=== PATIENT | male | born 1995 | race Caucasian/White ===

== ENCOUNTER 2017-05-19 18:28 | Observation (INO) | payer OTHER ==
--- NOTE | 2017-05-19 19:36 | CPEKG ---
Heart Rate: 48 RR Interval: 1250 P-R Interval: 152 QRSD Interval: 88 QT Interval: 452 QTC Interval: 404 P [place]: 53 QRS [place]: 81 T Wave [place]: 60 EKG Severity - ABNORMAL ECG - EKG Impression: SINUS RHYTHM EKG Impression: SUPRAVENTRICULAR BIGEMINY Electronically Signed By: Shobha Rosenthal 19-May-2017 22:55:11
[2017-05-19 19:41] LABS: % IMMATURE GRANULYOCYTES 0.4 % (0.0-1.1); ABSOLUTE IMMATURE GRANULOCYTES 0.03 10^3/uL (0.00-0.10); ADD DIFF? NO; ADD MORPH? NO; ADD SCAN? NO; ATYPICAL LYMPHOCYTE FLAG 30 (0-99); FRAGMENT RBC FLAG 0 (0-99); HEMATOCRIT 39.6 % (40.0-51.0); HEMOGLOBIN 14.2 g/dL (13.7-17.5); LEFT SHIFT FLG 10 (0-99); LIPEMIA HEMOLYSIS FLAG 90 (0-99); MEAN CELL HEMOGLOBIN 32.1 pg (27.9-34.1); MEAN CELL HEMOGLOBIN CONCENTR. 35.9 g/dL (32.4-36.7); MEAN CELL VOLUME 89.6 fL (81.5-99.8); MEAN PLATELET VOLUME 10.6 fL (8.7-11.7); PLATELET CLUMPS FLAG 10 (0-99); PLATELET COUNT 215 10^3/uL (150-400); RED BLOOD CELL COUNT 4.42 10^6/uL (4.40-6.38); RED CELL DISTRIBUTION WIDTH 12.3 % (11.5-15.2)
[2017-05-19 19:52] LABS: ANION GAP 14 mEq/L (8-16); CALCIUM 9.7 mg/dL (8.5-10.4); CARBON DIOXIDE 20 mEq/l (22-31); CHLORIDE 104 mEq/L (97-110); ETHANOL SERUM < 10 mg/dL (0-10); GLOMERULAR FILTRATION RATE > 60; GLUCOSE 70 mg/dL (70-100); POTASSIUM 3.9 mEq/L (3.5-5.2); SALICYLATE < 1.0 mg/dL (2.0-20.0); SODIUM 138 mEq/L (134-144)
[2017-05-19] MEDS ORDERED: NS 1,000 ML IV ONE (20:00)
[2017-05-19] MEDS ORDERED: ONDANSETRON 4 MG/2 ML VIAL IVP PRN (21:26)
[2017-05-19] MEDS ORDERED: ACETAMINOPHEN 325 MG TAB PO PRN (21:26)
[2017-05-19] MEDS ORDERED: NS 1,000 ML IV SCH (21:30)
--- NOTE | 2017-05-19 21:34 | PDGENHP ---
History and Physical History and Physical: HISTORY AND PHYSICAL CC:Brought in with altered mentation HISTORY: this patient comes into the ER today because of altered mentation. He is unable to provide a meaningful history to me at this time. I am getting my information through Dr. Rosenthal of the ER. It sounds like the patient was recently prescribed Klonopin and was given 60 tablets a few days ago and has a has only 7 tablets left. We are unaware if there is actually ingestion of these Klonopin tablets and unaware if he has had any other specific ingestions. The patient does wake up and I ask him if he has had alcohol and he says no. He does tell me that he uses marijuana daily. The accuracy of these answers is indeterminate. I am unable to get him to a answer whether he takes any other drugs Or chemicals. I am unable to determine if there is any trauma from history. There is no specific symptom presented of any fever or other acute symptoms of illness but again history is limited and of questionable accuracy at this time. ROS: A comprehensive 10 system review is attempted, but revealed no other significant findings PAST MEDICAL HISTORY: His medical history is entirely unknown to me, however he is prescribed as an outpatient Klonopin and lisdexamphetamine so there is probably some mental health disorder and possibly ADD. FAMILY MEDICAL HISTORY: Unknown to me at this time SOCIAL HISTORY: patient states he works at [employer] and admits to use of marijuana and tobacco but I am unable to get any other helpful social history from her MEDICATIONS: The patients list has been reconciled by our clinical pharmacist in the EMR. I have reviewed the list and ordered appropriate medicines. PHYSICAL EXAMINATION: Vital Signs: stable without fever Political Research Scientist: sinus rhythm with narrow QRS complexes and no concerning abnormalities otherwise Examination: General: as I walk into the room he is sleeping and snoring. At 1st I have trouble getting him to arouse at all. Finally as I persist he suddenly jumps up to a sitting position looks around the room lies back down and quickly goes back to sleep. I get him to wake up very abruptly again and he very briefly answers a couple of questions without really seeming to pay much attention and without making any eye contact, then falls asleep again. He was unable to state what day it is or where he is. He could tell me his name is a age. 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, no focal weakness IV site: looks normal LABORATORY DATA: negative tests for Tylenol, salicylates, And alcohol Amphetamines in the urine are consistent with his use of list dex amphetamine; Also present are benzodiazepine and marijuana as expected, otherwise normal minimal decrease in CO2 at 20 on serum chemistry 12 LEAD EKG: my personal review of the the ER EKG tracing, sinus bradycardia otherwise normal ASSESSMENT: -Acute altered mentation, most suspicious for ingestion, possibly his Klonopin but unknown etiology at this time -So far no specific indicators of trauma, infection, metabolic disorder, or organ dysfunction -Question of possible intentional ingestion of prescribed medication -Marijuana abuse -Unknown mental health issues PLANS: -placed on observation tensive care unit -Seizure precaution -NPO for the moment, IV hydration -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 Shobha Rosenthal
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
[2017-05-20 05:48] VITALS: RESP 20
[2017-05-20 06:20] LABS: % IMMATURE GRANULYOCYTES 0.5 % (0.0-1.1); ABSOLUTE IMMATURE GRANULOCYTES 0.03 10^3/uL (0.00-0.10); ADD DIFF? NO; ADD MORPH? NO; ADD SCAN? NO; ATYPICAL LYMPHOCYTE FLAG 40 (0-99); FRAGMENT RBC FLAG 0 (0-99); HEMATOCRIT 39.5 % (40.0-51.0); HEMOGLOBIN 14.1 g/dL (13.7-17.5); LEFT SHIFT FLG 10 (0-99); LIPEMIA HEMOLYSIS FLAG 90 (0-99); MEAN CELL HEMOGLOBIN CONCENTR. 35.7 g/dL (32.4-36.7); MEAN CELL VOLUME 89.8 fL (81.5-99.8); MEAN PLATELET VOLUME 10.5 fL (8.7-11.7); PLATELET CLUMPS FLAG 10 (0-99); PLATELET COUNT 194 10^3/uL (150-400); RED CELL DISTRIBUTION WIDTH 12.4 % (11.5-15.2)
[2017-05-20 06:34] LABS: ALANINE AMINOTRANSFERASE 36 IU/L (21-72); ALBUMIN 4.1 g/dL (3.5-5.0); ALKALINE PHOSPHATASE 64 IU/L (38-126); ANION GAP 13 mEq/L (8-16); ASPARTATE AMINOTRANSFERASE 34 IU/L (17-59); BILIRUBIN,TOTAL 1.3 mg/dL (0.1-1.4); CALCIUM 9.3 mg/dL (8.5-10.4); CARBON DIOXIDE 18 mEq/l (22-31); CHLORIDE 108 mEq/L (97-110); GLOMERULAR FILTRATION RATE > 60; GLUCOSE 66 mg/dL (70-100); SODIUM 139 mEq/L (134-144); TOTAL PROTEIN 6.6 g/dL (6.3-8.2)
[2017-05-20] MEDS ORDERED: LISDEXAMFETAMINE DIMESYLATE 50 MG PO SCH (09:00)
[2017-05-20] MEDS ORDERED: Lisdexamfetamine Dimesylate [Vyvanse] 50 MG PO SCH (09:00)
[2017-05-20 10:56] VITALS: BP 132/64; PULSE 73; TEMP 98; O2SAT 100
--- NOTE | 2017-05-20 15:17 | PDDCSUM ---
Discharge Summary Discharge Summary: DISCHARGE SUMMARY FOLLOW-UP ITEMS: The patient management of psychiatry medications as well as reassessment of diagnosis DATE OF ADMISSION: 05/19/2017 DATE OF DISCHARGE: 05/20/2017 DISCHARGE DIAGNOSES: 1. Acute encephalopathy 2. Reported attention deficit hyperactivity disorder 3. Reported anxiety disorder CONSULTATIONS: Behavioral health evaluated PROCEDURES / IMAGING: None CHIEF COMPLAINT: Acute alteration in mental status SUBJECTIVE: Patient feels like he is mentating at his baseline, he is easily agitated by his parents, he reports no intent to harm self PHYSICAL EXAM ON DISCHARGE: Systolic blood pressure 100-120, heart rate 50-80, afebrile overnight, satting well on room air, alert awake oriented x3, mild amount of distress, mostly exacerbated by interactions with his parents, patient appears to be anxious and hyperactive but not overtly manic, he denies suicidal ideation or suicidal intent, denies depression, thought process is linear and not tangential, he is cooperative and follows commands LABS ON DISCHARGE: White blood count 6400, hemoglobin 14.1, creatinine 1.0, potassium 4, liver panel unremarkable, tox screen positive for THC, amphetamines, benzodiazepines HOSPITAL COURSE BY PROBLEM: 1. Acute encephalopathy. Evidenced by global brain dysfunction characterized as agitation, confusion, poor memory, acutely witnessed by the patient's father who reports that his mental status was acutely different than his baseline, prompting presentation for evaluation. The patient's mental status changes were most likely secondary to acute effects of benzodiazepine misuse, notably clonazepam. The patient had been initiated on this medication 5 days prior and he had been using it as needed every several hours for anxiety. His prescription had been for 60 tabs and his father reports that they are only 7 tabs left in the bottle. Consequently, it seems to indicate that the patient took 53 tabs over the span of 5 days which would produce significant mental status changes in a benzodiazepine naive patient. After holding his clonazepam and any other mind-altering medications, the patient's mental status improved and returned to his baseline. The patient reported that he did not engage in a intentional overdose and that he was unintentionally misusing the medication. The patient was seen by our [facility] evaluated and determined to not be an imminent risk to self, although significant family dynamics and conflict were identified. The patient does not currently require inpatient psychiatric stabilization instead we have for the patient back to his outpatient therapist as well as his outpatient psychiatrist. Patient feels safe with this plan and we counseled the patient's parents that this is the most appropriate discharge scenario for their son at this time. 2. Reported attention deficit hyperactivity disorder and anxiety disorder. The patient reports that he has a long history of attention deficit hyperactivity disorder and he is only intermittently taking Vyvanse. I believe it would be appropriate to reassess the patient in the outpatient setting with his established psychiatry provider and determine whether the patient truly has attention deficit hyperactivity disorder or whether he has an on recognized mood disorder such as bipolar disease. The recommended treatment would vary significantly between these 2 conditions. If the patient does indeed have attention deficit hyperactivity disorder, then would recommend that he actually be taking more of his Vyvanse then this scant amount he is currently taking. If he has bipolar disease, then this medication would be contraindicated and would need to be placed on a mood stabilizer. We will leave this to his outpatient psychiatry provider and recommend that he follow up with Dr. Altamirano this week. Recommend the patient not take anymore of his clonazepam until he follows up with his primary psychiatrist. DISCHARGE MEDICATIONS: Please see official discharge medication reconciliation sheet in chart , continue home medications with the exception of clonazepam. DISCHARGE INSTRUCTIONS: Patient should follow up with his therapist this afternoon, his primary psychiatrist later this week. TIME SPENT: Greater than 30 minutes were spent on direct patient care, as well as discharge planning and preparation.
[2017-05-21] MEDS ORDERED: ESCITALOPRAM OXALATE 10 MG TAB PO SCH (09:00)
[2017-05-21] MEDS ORDERED: NON-FORMULARY NEW DRUG (Escitalopram Oxalate [Lexapro] 20 MG) PO SCH (09:00)
== END 2017-05-20 11:19 | disposition home or self-care (01) ==
LOC: INTOOBSV 20:20 → F2N 21:29
PROVIDERS: ADMIT Internal Medicine; ATTEND Internal Medicine
DX: G93.49 Other encephalopathy (principal); F90.9 Attention-deficit hyperactivity disorder, unspecified type; F41.9 Anxiety disorder, unspecified; T42.4X5A Adverse effect of benzodiazepines, initial encounter
CPT/HCPCS: 93005; 99285; G0378; 80305; G0480